=== PATIENT | male | born 1995 | race Caucasian/White ===

== ENCOUNTER 2020-07-22 12:19 | Emergency (ER) | payer OTHER ==
[2020-07-22 12:30] VITALS: BP 147/88
--- NOTE | 2020-07-22 12:35 | ER Document Report ---
HPI - HPI Time Seen by Provider: 07/22/20 12:29 Notes: 25-year-old male patient presenting to the emergency department concern for bleeding from the scrotum. Patient reports bleeding started just prior to arrival. He denies any known trigger of this. He has never had this happen in the past. - ROS Systems Reviewed and Negative: Yes All other systems reviewed and negative Past Medical History - General Information source: Patient - Social History Smoking Status: Never Smoker Frequency of alcohol use: None Drug Abuse: None Family History: None - Medical History Medical History: Negative Surgical Hx: Negative Vertical Provider Document - CONSTITUTIONAL Notes: PHYSICAL EXAMINATION: GENERAL: Well-appearing, well-nourished and in no acute distress. HEAD: Atraumatic, normocephalic. EYES: Pupils equal round extraocular movements intact, conjunctiva are normal. ENT: Nares patent NECK: Normal range of motion LUNGS: No respiratory distress Musculoskeletal: Normal range of motion NEUROLOGICAL: Normal speech, normal gait. PSYCH: Normal mood, normal affect. Other: Tiny clot noted on the scrotum overlying the right testicle in the middle of one of the superficial veins. No active bleeding noted. No obvious testicular swelling, normal cremasteric reflex. Course - Re-evaluation Re-evalutation: Testicular exam was reassuring. Bleeding has stopped. I discussed case with attending physician who agrees with disposition plan. Patient also in agreement with plan. - Vital Signs Vital signs: Temp Pulse Resp BP Pulse Ox 98.2 F 107 H 20 147/88 H 98 07/22/20 12:27 07/22/20 12:27 07/22/20 12:27 07/22/20 12:27 07/22/20 12:27 Discharge - Discharge Clinical Impression: Scrotal bleeding Condition: Stable Disposition: HOME, SELF-CARE Additional Instructions: The bleeding that you experienced prior to arrival can be a common occurrence. Is due to the rupture of one of the superficial blood vessels. Try to avoid aggravating the area or rubbing anything up against the area. Return if any new or worsening symptoms.
== END 2020-07-22 12:49 | disposition home or self-care (01) ==
LOC: ER 12:19
DX: N50.1 Vascular disorders of male genital organs (principal)
CPT/HCPCS: 99282